=== PATIENT | female | born 1955 | race Caucasian/White ===

== ENCOUNTER → 2020-07-04 | Outpatient (CLI) | payer OTHER | LOC: SJCVC 11:11 | PROVIDERS: ATTEND Internal Medicine | DX: R07.2 Precordial pain (principal); I10 Essential (primary) hypertension; R00.0 Tachycardia, unspecified; G89.4 Chronic pain syndrome; E78.5 Hyperlipidemia, unspecified; I82.5Y3 Chronic embolism and thrombosis of unspecified deep veins of proximal lower extremity, bilateral; M05.9 Rheumatoid arthritis with rheumatoid factor, unspecified; Q28.2 Arteriovenous malformation of cerebral vessels; Z87.891 Personal history of nicotine dependence; Z79.899 Other long term (current) drug therapy; Z88.2 Allergy status to sulfonamides; Z88.1 Allergy status to other antibiotic agents; Z88.8 Allergy status to other drugs, medicaments and biological substances ==